=== PATIENT | female | born 1945 | race Caucasian/White ===

== ENCOUNTER 2017-09-19 23:47 | Emergency (ER) | payer OTHER ==
[~2017-09-19] VITALS: Ht 157.5 cm; Wt 84.0 kg
[~2017-09-19 23:47] MED LIST: ACYCLOVIR 400400 MG PO; ALBUTEROL2.5 MG/31; ANUCORT-HC25 MG RECTAL; ASPIRIN81 M2 PO; ATENOLOL 25MG T25 M1 PO; B-50 COMPLEX1 EAC1 PO; C-PROGESTERONE SUBLING; CALCIUM PO; CENTRUM SILVER1 EAC4 PO; CHROMIUM PICO400 MCG PO; CO Q-10100 MG PO; CORTEF10 MG PO; DUONEB 2.5-0.5 M3 ML; DYMISTA NASAL S23 GM NS; GABAPENTIN 100100 MG PO; HYDROCODON-ACE1 EACH PO; LANTUS INJECTION; LANTUS SUBQ; LEVOCETIRIZINE D5 MG PO; LEVOTHYROXINE 0.15MG PO; LISINOPRIL5 MG PO; MELATONIN5 M1 PO; MSM1500 MG PO; NITROGLYCERIN0.4 MG SUBLING; NOVOLOG100 UNIT/1 SUBQ; OMEPRAZOLE40 MG PO; PETADOLEX PO; PRAVACHOL 20 MG20 M1 PO; PRELIEF65 MG PO; PRILOSEC 20 MG20 MG PO; PROVENTIL HFA6.7 G1; SINGULAIR 10 MG10 MG PO; SYNTHROID137 MCG PO; TENORMIN50 MG PO; TIZANIDINE HCL4 M1 PO; TOPAMAX50 MG PO; ULTRAM 50MG TAB50 MG PO; VITAMIN D1000 UNI1 PO; VITAMIN D31000 UNI2 PO; VITAMINC500 PO; WELCHOL 625 MG625 MG PO; ZOCOR80 MG PO
[2017-09-20] MEDS ORDERED: COREG25 MG PO
[2017-09-20] MEDS ORDERED: WELLBUTRIN SR150 MG PO
[2017-09-20] MEDS ORDERED: IMITREX 50 MG T50 MG PO
[2017-09-20 00:14] LABS: ABSOLUTE BASOPHILS 0.1 thou/uL (0.0-0.2); ABSOLUTE EOSINOPHILS 0.2 thou/uL (0.0-0.7); ABSOLUTE LYMPHOCYTES 1.5 thou/uL (0.8-5.3); ABSOLUTE MONOCYTES 0.7 thou/uL (0.0-1.2); ABSOLUTE NEUTROPHILS 6.9 thou/uL (1.6-8.1); BASOPHILS 0.6 %; EOSINOPHILS 2.4 %; HEMATOCRIT 37.6 % (37.0-47.0); HEMOGLOBIN 12.6 gm/dL (12.0-15.0); LYMPHOCYTES 16.1 %; MCH 26.5 pg (26.0-34.0); MCHC 33.6 g/dL (28.0-37.0); MCV 78.8 fL (80.0-100.0); MONOCYTES 7.6 %; MPV 8.3 fl. (7.2-11.1); NUCLEATED RBCS 0 /100WBC; PLATELET COUNT* 186 thou/uL (150-400); POLYS 73.3 %; RBC 4.77 mil/uL (4.20-5.00); RDW-CV 15.9 % (10.5-14.5); WBC 9.4 thou/uL (4.0-11.0)
[2017-09-20 00:27] LABS: ANION GAP 5 mmol/L (7-16); BUN 12 mg/dL (7-18); CALCIUM 8.7 mg/dL (8.5-10.1); CHLORIDE 104 mmol/L (98-107); CO2 29 mmol/L (21-32); CREATININE 0.8 mg/dL (0.6-1.3); GLUCOSE 155 mg/dL (70-99); POTASSIUM 3.4 mmol/L (3.5-5.1); SODIUM 138 mmol/L (136-145)
[2017-09-20 00:30] LABS: APTT 27.9 Seconds (25.0-31.3); INR 1.1; PROTIME 10.3 Seconds (9.20-11.50)
[2017-09-20 00:47] LABS: ALBUMIN 3.3 g/dL (3.4-5.0); ALKALINE PHOSPHATASE 252 U/L (46-116); CK-MB MASS < 0.5 ng/mL (<0.5-3.6); NT-PRO BRAIN NAT PEPTIDE 172 pg/mL (<300); SGOT 30 U/L (15-37); SGPT 34 U/L (30-65); TOTAL BILIRUBIN 0.5 mg/dL (<0.1-1.0); TOTAL PROTEIN 6.9 g/dL (6.4-8.2); TROPONIN-I LEVEL <0.06 ng/mL (<0.06)
[2017-09-20 01:16] LABS: URINE BILIRUBIN NEGATIVE (Negative); URINE BLOOD NEGATIVE (Negative); URINE CLARITY CLEAR; URINE COLOR YELLOW; URINE GLUCOSE-RANDOM 1+ (Negative); URINE KETONES NEGATIVE (Negative); URINE NITRITE-REFLEX NEGATIVE (Negative); URINE PROTEIN NEGATIVE (Negative); URINE SPECIFIC GRAVITY <= 1.005 (1.005-1.030); URINE UROBILINOGEN 0.2 E.U./dl (0.2-1.0)
[2017-09-20 01:17] LABS: URINE LEUKOCYTES-REFLEX NEGATIVE (Negative)
[2017-09-20] MEDS ORDERED: ZOFRAN ODT4 MG PO (01:56)
[2017-09-20 02:05] VITALS: BP 156/65
--- NOTE | 2017-09-20 14:28 | EKG ---
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 BED 17 : 1945 Requested By: Richard Stover Order Number: [id number] MD: Ruben Ross Measurements Intervals [place] Rate: 69 P: 34 GA: 207 QRS: -10 QRSD: 96 T: 0 QT: 445 QTc: 477 Interpretive Statements Sinus rhythm Borderline T abnormalities, anterior leads Compared to ECG 10/12/2008 13:27:47 T-wave abnormality now present Electronically Signed On 09-20-2017 14:27:46 CDT by Ruben Ross [email or web address] <ELECTRONICALLY SIGNED> By: Ruben Ross MD, [facility] 09/20/17 1427 0000 0000 Ruben Ross MD, [facility] /EPI
== END 2017-09-20 02:10 | disposition home or self-care (01) ==
LOC: M.ERS 23:47
PROVIDERS: Emergency Medicine Emergency Medical Services
DX: R11.2 Nausea with vomiting, unspecified (principal); E16.2 Hypoglycemia, unspecified; Z90.89 Acquired absence of other organs; Z90.49 Acquired absence of other specified parts of digestive tract; Z90.710 Acquired absence of both cervix and uterus; Z88.1 Allergy status to other antibiotic agents; Z88.5 Allergy status to narcotic agent

== ENCOUNTER 2018-06-25 17:19 | Emergency (ER) | payer OTHER ==
[~2018-06-25] VITALS: Ht 157.5 cm; Wt 86.8 kg
[~2018-06-25 17:19] MED LIST changes: -B-50 COMPLEX1 EAC1 PO; +COREG25 MG PO; -DUONEB 2.5-0.5 M3 ML; +IMITREX 50 MG T50 MG PO; +IPRAT-ALBUT 0.5-3 ML INH; -LEVOTHYROXINE 0.15MG PO; +SYNTHROID150 MCG PO; +VITAMIN B-50 C0.4 MG PO; +WELLBUTRIN SR150 MG PO; +ZOFRAN ODT4 MG PO
[2018-06-25 17:45] LABS: ABSOLUTE EOSINOPHILS 0.1 thou/uL (0.0-0.7); ABSOLUTE LYMPHOCYTES 1.6 thou/uL (0.8-5.3); ABSOLUTE MONOCYTES 0.4 thou/uL (0.0-1.2); ABSOLUTE NEUTROPHILS 3.8 thou/uL (1.6-8.1); BASOPHILS 0.7 %; EOSINOPHILS 1.5 %; HEMATOCRIT 38.9 % (37.0-47.0); HEMOGLOBIN 12.9 gm/dL (12.0-15.0); LYMPHOCYTES 26.5 %; MCH 27.4 pg (26.0-34.0); MCHC 33.1 g/dL (28.0-37.0); MCV 82.7 fL (80.0-100.0); MONOCYTES 7.3 %; MPV 8.6 fl. (7.2-11.1); NUCLEATED RBCS 0 /100WBC; PLATELET COUNT* 183 thou/uL (150-400); RDW-CV 15.5 % (10.5-14.5)
[2018-06-25 17:55] LABS: APTT 27.6 Seconds (25.0-31.3); PROTIME 10.2 Seconds (9.20-11.50)
[2018-06-25 17:56] LABS: ANION GAP 10 mmol/L (7-16); BUN 14 mg/dL (7-18); CALCIUM 8.4 mg/dL (8.5-10.1); CHLORIDE 97 mmol/L (98-107); CO2 23 mmol/L (21-32); CREATININE 1.2 mg/dL (0.6-1.3); POTASSIUM 3.6 mmol/L (3.5-5.1); SODIUM 130 mmol/L (136-145)
[2018-06-25 17:59] LABS: GLUCOSE 560 mg/dL (70-99)
[2018-06-25 18:05] LABS: ALBUMIN 3.3 g/dL (3.4-5.0); ALKALINE PHOSPHATASE 256 U/L (46-116); NT-PRO BRAIN NAT PEPTIDE 258 pg/mL (<300); SGOT 17 U/L (15-37); SGPT 29 U/L (30-65); TOTAL BILIRUBIN 1.2 mg/dL (<0.1-1.0); TOTAL PROTEIN 6.9 g/dL (6.4-8.2); TROPONIN-I LEVEL <0.06 ng/mL (<0.06)
[2018-06-25 18:34] VITALS: BP 174/70
== END 2018-06-25 18:36 | disposition home or self-care (01) ==
LOC: M.ERS 17:19
PROVIDERS: Family Medicine
DX: E11.65 Type 2 diabetes mellitus with hyperglycemia (principal); Z88.5 Allergy status to narcotic agent; Z88.1 Allergy status to other antibiotic agents; Z88.8 Allergy status to other drugs, medicaments and biological substances; Z90.49 Acquired absence of other specified parts of digestive tract; Z90.710 Acquired absence of both cervix and uterus

== ENCOUNTER 2018-06-25 23:41 | Inpatient (IN) | payer OTHER ==
[~2018-06-25] VITALS: Ht 157.5 cm; Wt 88.9 kg
--- NOTE | ~2018-06-25 | EEG ---
[address] [address] EEG STUDY REPORT Name: SHALOM DOUGLAS Room: [address] IN .#: [id number] Admission: 06/26/18 Attend Phys: Courtney Shepard MD Discharge: Date of : 45 Report #: [id number] THIS REPORT FOR: //name// CC: Courtney Shepard Physician staff MARITZA MCCLENDON DATE OF SERVICE: 06/26/2018 This patient is being evaluated for seizure disorder. EEG was done by placing the electrode by standard 10-20 system of electrode placement. Both referential and sequential montages were used for recording. Background activity in this patient's EEG is about 10 Hz and 30 microvolts. The patient became drowsy that is associated with bilateral slowing and vertex sharp waves. Photic stimulation is unremarkable. Throughout the record, no active epileptiform activity was noticed. IMPRESSION: This patient's EEG is unremarkable. No definite epileptiform activity was noticed during this record. It might be mentioned that EEG can be normal in a patient with seizure disorder. Thank you very much for this referral. By: [id number] Augustin MD /nt
[2018-06-25 23:42] VITALS: BP 177/85
[2018-06-26] LABS: NUCLEATED RBCS 0 /100WBC; PLATELET COUNT* 203 thou/uL (150-400)
[2018-06-26 00:02] LABS: ABSOLUTE BASOPHILS 0.1 thou/uL (0.0-0.2); ABSOLUTE EOSINOPHILS 0.2 thou/uL (0.0-0.7); ABSOLUTE LYMPHOCYTES 2.1 thou/uL (0.8-5.3); ABSOLUTE MONOCYTES 0.9 thou/uL (0.0-1.2); ABSOLUTE NEUTROPHILS 5.2 thou/uL (1.6-8.1); BASOPHILS 0.7 %; HEMATOCRIT 40.1 % (37.0-47.0); HEMOGLOBIN 13.3 gm/dL (12.0-15.0); LYMPHOCYTES 25.3 %; MCHC 33.2 g/dL (28.0-37.0); MCV 81.3 fL (80.0-100.0); MONOCYTES 10.4 %; MPV 8.6 fl. (7.2-11.1); POLYS 61.6 %; RBC 4.94 mil/uL (4.20-5.00); RDW-CV 15.3 % (10.5-14.5); WBC 8.5 thou/uL (4.0-11.0)
[2018-06-26 00:09] LABS: ANION GAP 9 mmol/L (7-16); BUN 14 mg/dL (7-18); CALCIUM 8.7 mg/dL (8.5-10.1); CHLORIDE 100 mmol/L (98-107); CO2 26 mmol/L (21-32); CREATININE 0.9 mg/dL (0.6-1.3); GLUCOSE 81 mg/dL (70-99); POTASSIUM 3.3 mmol/L (3.5-5.1); SODIUM 135 mmol/L (136-145)
[2018-06-26 00:11] LABS: PROTIME 10.1 Seconds (9.20-11.50)
[2018-06-26 00:24] LABS: ALBUMIN 3.6 g/dL (3.4-5.0); ALKALINE PHOSPHATASE 256 U/L (46-116); NT-PRO BRAIN NAT PEPTIDE 303 pg/mL (<300); SGOT 23 U/L (15-37); SGPT 28 U/L (30-65); TOTAL BILIRUBIN 0.6 mg/dL (<0.1-1.0); TOTAL PROTEIN 7.2 g/dL (6.4-8.2); TROPONIN-I LEVEL <0.06 ng/mL (<0.06)
[2018-06-26 01:32] LABS: URINE BILIRUBIN NEGATIVE (Negative); URINE BLOOD NEGATIVE (Negative); URINE CLARITY CLEAR; URINE COLOR YELLOW; URINE GLUCOSE-RANDOM NEGATIVE (Negative); URINE KETONES NEGATIVE (Negative); URINE LEUKOCYTES-REFLEX NEGATIVE (Negative); URINE NITRITE-REFLEX NEGATIVE (Negative); URINE PROTEIN NEGATIVE (Negative); URINE UROBILINOGEN 0.2 E.U./dl (0.2-1.0)
[2018-06-26 03:00] VITALS: BP 150/64
--- NOTE | 2018-06-26 04:57 | NUR ---
PT RECIEVED FROM ED AT 0300. SAT MAINTAINED IN RA. PT ALERT AND ORIENTED X4. CALL LIGHT WITHIN REACH AND BED IN LOW POSITION. ACUUCHECK Q HRLY AND CHARTED. 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 PT ALERT. HOURLY ROUNDING DOBE FOR PT SAFETY.
[2018-06-26 08:00] VITALS: BP 170/77
--- NOTE | 2018-06-26 10:22 | EKG ---
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
[2018-06-26 12:17] LABS: CALCIUM 8.8 mg/dL (8.5-10.1); CREATININE 0.8 mg/dL (0.6-1.3)
[2018-06-26 12:19] VITALS: BP 179/106
--- NOTE | 2018-06-26 13:39 | NUR ---
Pt is A&O. Resides at home with her . Pt and share household duties, does the driving. Pt has a RW that she uses for mobility. No hx of HH or SNF. Goal is home at dc, Pt anticipates that she will dc tomorrow. No needs anticipated.
[2018-06-26 15:38] VITALS: BP 139/105
--- NOTE | 2018-06-26 17:21 | NUR ---
ASSUMED CARE OF PT THIS AM ASSESSED AND DOCUMENTED. PT ON CARDIAC MONITER TRACING SR. PT HAS HAD A HEADACHE THIS SHIFT. TRIED HOT RAGS COLD RAGS AND TRAMADOL. IMATREX WAS EFFECTIVE. EEG AND MRI SHOW NO ACUTE FINDINGS. K+ IS NOW WNL. EDUCATION GIVEN ON DEMAND. HOURLY ROUNDING COMPLETE. PT HAS HAD VISITORS AND TALKED ON THE PHONE THIS SHIFT.
[2018-06-26 19:08] LABS: GLYCOHEMOGLOBIN (HGB A1C) 8.1 % (4.8-5.6)
[2018-06-26 20:00] VITALS: BP 187/95
--- NOTE | 2018-06-26 22:54 | NUR ---
CALL TO DOCTOR REGARDING PATIENT'S BLOOD PRESSURE, SEE ORDERS.
[2018-06-27] VITALS: BP 166/62
--- NOTE | 2018-06-27 02:13 | NUR ---
PATIENT RESTED IN BED. PATIENT IS NOT SHOWING SIGNS OF DISTRESS. CALL LIGHT WITHIN REACH, HOURLY ROUNDING OBSERVED, BED ALARM ON. FALL PRECUATIONS IN PLACE.
[2018-06-27 04:00] VITALS: BP 178/74
[2018-06-27 04:05] VITALS: BP 154/80
[2018-06-27 08:00] VITALS: BP 197/91
--- NOTE | 2018-06-27 10:18 | EKG ---
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[facility] : 1945 Requested By: Sosa Yee Order Number: [id number] MD: Edu Ojeda Measurements Intervals [place] Rate: 59 P: 21 ME: 206 QRS: -15 QRSD: 95 T: -5 QT: 496 QTc: 492 Interpretive Statements Sinus rhythm Borderline left axis deviation Low voltage, precordial leads Nonspecific T abnrm, anterolateral leads Borderline prolonged QT interval Compared to ECG 06/25/2018 17:30:20 Low QRS voltage now present T-wave abnormality no longer present Electronically Signed On 06-27-2018 10:18:22 TECHNICAL WRITER AND EDITOR by Edu Ojeda [email or web address] <ELECTRONICALLY SIGNED> By: Edu Ojeda MD, FAC 06/27/18 1018 0026 0026 Edu Ojeda MD, FACC /EPI
--- NOTE | 2018-06-27 10:59 | NUR ---
Nutrition: Consult for DM diet instruction. Pt stated she has had Type 1 for ~20 yrs. She watches her CHOs, she takes her insulin. She stated her last A1c was 7.8%. Wt: 196#. She stated she did not need any education, she did not have any questions about her diet/DM. RD encouraged pt to call if anything arises about nutrition. Will defer further assessment at this time. Appears low risk.
[2018-06-27 11:41] VITALS: BP 149/78
[2018-06-27 11:53] VITALS: BP 149/78
--- NOTE | 2018-06-27 12:30 | NUR ---
PT DC HOME WITH ALL BELONGINGS. PT ACKNOWLEDGED DC INSTRUCTIONS AND MEDICATIONS. IV REMOVED INTACT BEFORE DC. PT DENIED C/O.
--- NOTE | 2018-06-27 17:45 | NUR ---
PT. DISCHARGE TO HOME PRIOR TO O.T. SERVICES. PLEASE ORDER FURTHER O.T. SERVICES IF NEEDED.
== END 2018-06-27 12:30 | disposition home or self-care (01) | DRG 637 ==
LOC: M.ERS 23:41 → M.TBA-ER 06-26 01:45 → M.2W 06-26 02:07 → M.TBA-ER 06-26 02:07 → M.2W 06-26 02:19
PROVIDERS: Emergency Medicine; ADMIT Internal Medicine
DX: E11.649 Type 2 diabetes mellitus with hypoglycemia without coma (principal); G93.41 Metabolic encephalopathy; R56.9 Unspecified convulsions; F32.9 Major depressive disorder, single episode, unspecified; Z90.49 Acquired absence of other specified parts of digestive tract; Z90.710 Acquired absence of both cervix and uterus; Z88.6 Allergy status to analgesic agent; Z88.1 Allergy status to other antibiotic agents; Z88.8 Allergy status to other drugs, medicaments and biological substances; Z79.899 Other long term (current) drug therapy